=== PATIENT | male | born 1995 | race Caucasian/White ===

== ENCOUNTER → 2017-06-14 | Day surgery (SDC) | payer SELFPAY ==
[~2017-06-14] MED LIST: D5 LR 1000 ML 1,000 ML IV ONE; DIPRIVAN VIAL 10 ML ONE
[2017-06-14 11:00] VITALS: BMI 23.0
--- NOTE | 2017-06-14 11:39 | DR.FB ---
HPI - Time Seen Time seen: 11:33 - PCP Primary Care Physician: RENU FUENTES - HPI Comment HPI Comment: Patient states that he was eating pork and was unable to swallow. He states that this usually happens and he is able to pass it through. He also states that he is scheduled to get his esophagus stretched. He has had this done in the past. Patient is alert in no distress - Complaint Chief Complaint:: PT C/O CHOKING ON PORK SINCE 06/13/17 Self Treatment fo Chief Complaint: PT C/O SOME SOB, PT HAS NOT EATEN SINCE 06/13 - Source History Provided: Patient - Mode of Arrival Mode of Arrival: Ambulatory - Timing Onset of Chief Complaint: 06/13/17 PMH - PMH Past Medical History: No Past Surgical History: No - Family History History of Family Medical Conditions: No - Social History Does patient currently use any type of tobacco product: No Have you used tobacco products in the last 12 months: No Type of Tobacco Use: None Does any household member use tobacco: No Alcohol Use: None Do you use any recreational Drugs:: No Lives With: Family Lives Where: Home - infectious screening In the last 2 months have you had wt loss of >10#?: NO Have you had fever, night sweats or hemotysis?: No Have you traveled outside the country in the last 6 months?: No Isolation: Standard ROS - Review of Systems Constitutional: No Symptoms Reported Eyes: No Symptoms Reported ENTM: No Symptoms Reported Respiratoy: No Symptoms Reported Cardiovascular: No Symptoms Reported Gastrointestinal/Abdominal: No Symptoms Reported Genitourinary: No Symptoms Reported Neurological: No Symptoms Reported Musculoskeletal: No Symptoms Reported Integumentary: No Symptoms Reported Hematologic/Lymphatic: No Symptoms Reported Endocrine: No Symptoms Reported Psychiatric: No Symptoms Reported All Other Systems: Reviewed and Negative PE - Vital Signs Vitals: Pulse Rate 67 Respiratory Rate 18 Blood Pressure 127/70 O2 Sat by Pulse Oximetry 100 - General Limitations: No Limitations General Appearance: Alert - Eyes Eye exam: Normal Appearance, PERRL, EOMI - ENT ENT Exam: Normal Exam External Ear Exam: Normal External Inspection TM/Canal Exam: Bilateral Normal Nose Exam: Normal Nose Exam Nasal Speculum Exam: Bilateral Normal Mouth Exam: Normal Inspection Throat Exam: Normal Inspection - Neck Neck Exam: Normal Inspection - Chest Chest Inspection: Normal Inspection - Respiratory Respiratory Exam: Normal Lung Sounds Bilat Respiratory Exam: Bilateral Clear to Auscultation - Cardiovascular Cardiovascular Exam: Regular Rate - Abdominal Exam Abdominal Exam: Normal Inspection, Normal Bowel Sounds Abdominal Tenderness: negative: RUQ, RLQ, LUQ, LLQ, Epigastrium, Suprapubic, Diffuse, Mild, Moderate, Severe, Other - Rectal Rectal Exam: Deferred - Genitalia Genitalia: Deferred - Neurologic Neurological Exam: Alert, Oriented X3, CN II-XII Intact - Skin Skin Exam: Warm, Dry, Intact Course - Consultation Called: 13:30 ROR - XRAY XRAY Interpreted by: Radiologist (AP and Lat neck: The retropharyngeal soft tissues are normal. The epiglottis is somewhat enlarged. Developing epiglottitis should be clinically excluded. No masses or radiopague foreign bodies are identitied. No subglottic tracheal narrowing is identified. Impression; No definite radiopaquye foreign body identified.Chest: Hyperinflation of lungs without infiltration or pneumothorax) - Diagnosis Discharge Problem: Esophageal stricture - Discharge Plan Condition: Stable - Follow ups/Referrals Follow ups/Referrals: RENU FUENTES [Primary Care Provider] - 3 days - Instructions
--- NOTE | 2017-06-14 12:14 | RAD ---
HISTORY: Swallowed foreign body Study: AP and lateral neck Comparison: None Technique: Soft tissue Findings: The retropharyngeal soft tissues are normal. The epiglottis is somewhat enlarged. Developing epiglott itis should be clinically excluded. No masses or radiopaque foreign bodies are identified. No subglot tic tracheal narrowing is identified. IMPRESSION: No definite radiopaque foreign body identified Enlargement of the epiglottis. Developing epiglottitis must be clinically excluded. Reported By:
--- NOTE | 2017-06-14 13:43 | RAD ---
HISTORY: Suspected pneumothorax Study: Three-view chest Comparison: No priors Technique: Coronal views are obtained in inspiration and expiration. Lateral views obtained in inspir ation. Findings: There is hyperinflation of the lungs. No pneumothorax, infiltrate or pleural fluid is seen. The trach ea is midline. Heart size is normal. Osseous structures are intact. IMPRESSION: Hyperinflation of the lungs without infiltrate or pneumothorax. Reported By:
[2017-06-14 15:21] VITALS: BP 109/50
== END | disposition home or self-care (01) | DRG 392 ==
LOC: ER 11:24 → SURG1 14:36
PROVIDERS: ATTEND Internal Medicine Gastroenterology
PROC: 0DC38ZZ Extirpation of Matter from Lower Esophagus, Via Natural or Artificial Opening Endoscopic (ICD-10-PCS; 2017-06-14)
PROC: 0DJ08ZZ Inspection of Upper Intestinal Tract, Via Natural or Artificial Opening Endoscopic (ICD-10-PCS; principal; 2017-06-14 21:45)
DX: R13.19 Other dysphagia (principal); K22.10 Ulcer of esophagus without bleeding; T18.8XXA Foreign body in other parts of alimentary tract, initial encounter; K22.2 Esophageal obstruction; K29.60 Other gastritis without bleeding
CPT/HCPCS: 70360; 71046; 96365; 99284; A4217; J3490; J7120